=== PATIENT | female | born 1950 | race Caucasian/White ===

== ENCOUNTER 2018-12-22 18:50 | Inpatient (IN) | payer MEDICARE, OTHER ==
[~2018-12-22] VITALS: Ht 152.4 cm; Wt 57.2 kg
[~2018-12-22 18:50] MED LIST: ALENDRONATE SOD70 MG PO; ASPIRIN81 MG PO; ATORVASTATIN CA10 MG PO; CALCIUM600 MG PO; DIOVAN HCT 1601 EAC1 PO; IBUPROFEN200 MG PO; MULTIVITAMIN PO; TYLENOL PM PO; VITAMIN C1000 MG PO; VITAMIN D1000 UNIT PO
[2018-12-22] MEDS ORDERED: PANTOPRAZOLE 40 MG 10ML VIAL IV ONE (19:12)
[2018-12-22] MEDS ORDERED: ONDANSETRON HCL INJ 2MG/ML 2ML 2 MG/ML VIAL IV ONE (19:12)
[2018-12-22] MEDS ORDERED: KETOROLAC TROMETHAMINE 30 MG/ML VIAL IV ONE (19:12)
[2018-12-22] MEDS ORDERED: SODIUM CHLORIDE 0.9% 1000ML 1,000 ML IV ONE (19:15)
[2018-12-22] MEDS ORDERED: DIATRIZOATE MEGL/DIATRIZOA SOD 30 ML BTL PO ONE (19:19)
[2018-12-22 19:25] LABS: BASOPHILS % 0.2 % (0.0-1.0); EOSINOPHILS % 0.1 % (0.0-6.0); HEMOGLOBIN 15.4 g/dL (12.0-16.0); LYMPHOCYTES % 5.6 % (18.0-39.1); MEAN CORPUSCULAR HEMOGLOBIN 30.1 pg (28-32); MEAN CORPUSCULAR HGB CONC 34.2 g/dL (31-35); MEAN CORPUSCULAR VOLUME 88.1 fL (81-99); MONOCYTES # (AUTO) 0.9 (0.2-0.8); MONOCYTES % 4.9 % (4.4-11.3); NEUTROPHILS # (AUTO) 16.3 (2.1-6.9); NEUTROPHILS % 88.8 % (38.7-80.0); PLATELET COUNT 172 x10e3/uL (140-360); RED BLOOD COUNT 5.11 x10e6/uL (3.6-5.1); RED CELL DISTRIBUTION WIDTH 13.2 % (11.7-14.4)
[2018-12-22 19:27] LABS: BILIRUBIN,URINE NEGATIVE (NEGATIVE); CLARITY,URINE SL CLOUDY (CLEAR); COLOR,URINE YELLOW (YELLOW); LEUKOCYTE ESTERASE ,URINE TRACE (NEGATIVE); NITRITE,URINE NEGATIVE (NEGATIVE); PROTEIN,URINE DIPSTICK TRACE (NEGATIVE); URINE UROBILINOGEN 0.2 mg/dL (0.2 - 1)
[2018-12-22 19:28] LABS: KETONES,URINE 1+ (NEGATIVE)
[2018-12-22 19:41] LABS: AMORPHOUS SEDIMENT,URINE MODERATE (FEW); BACTERIA,URINE MODERATE /HPF; EPITHELIAL CELLS,URINE FEW /LPF; MUCUS,URINE MODERATE (RARE); RBC,URINE 0-5 /HPF (0-5)
[2018-12-22 19:44] LABS: ALANINE AMINOTRANSFERASE 21 IU/L (0-55); ALBUMIN 4.4 g/dL (3.5-5.0); ALBUMIN/GLOBULIN RATIO 1.3 (0.8-2.0); ALKALINE PHOSPHATASE 66 IU/L (40-150); AMYLASE 63 U/L (25-125); ANION GAP 17.3 mmol/L (8-16); BLOOD UREA NITROGEN 20 mg/dL (7-26); BUN/CREATININE RATIO 24 (6-25); CALCIUM 10.6 mg/dL (8.4-10.2); CARBON DIOXIDE 30 mmol/L (22-29); CHLORIDE 96 mmol/L (98-107); CREATINE KINASE 27 IU/L (29-168); CREATININE, SERUM 0.83 mg/dL (0.57-1.11); EST GLOMERULAR FILTRATION RATE > 60 ML/MIN (60-); GLUCOSE 116 mg/dL (74-118); LIPASE 26 U/L (8-78); POTASSIUM 3.3 mmol/L (3.5-5.1); SODIUM 140 mmol/L (136-145)
[2018-12-22] MEDS ORDERED: HYZAAR 100-12.1 EACH PO (19:49)
--- NOTE | 2018-12-22 20:52 | Diagnostic Imaging Report ---
EXAM: CT of the abdomen and pelvis WITH contrast HISTORY: abdominal pain, history of appendectomy COMPARISON: None. TECHNIQUE: The abdomen and pelvis were scanned utilizing a multidetector helical scanner. Coronal and sagittal reformats are provided. PROTOCOL: Routine IV CONTRAST: 100 cc of Isovue-370. ORAL CONTRAST: Dilute Gastrografin RADIATION DOSE: Total DLP: 165.01 mGy*cm Estimated effective dose: (DLP x 0.015 x size factor) Dose modulation, iterative reconstruction, and/or weight based adjustment of the mA/kV was utilized to reduce the radiation dose to as low as reasonably achievable. COMPLICATIONS: None FINDINGS: LOWER THORAX: Unremarkable. HEPATOBILIARY: A 0.9 mildly lobulated density near the dome of the right lobe (axial image 10), this may reflect a flash filling hemangioma. No biliary dilation. No calcified gallstone. SPLEEN: No splenomegaly. PANCREAS: No focal masses or ductal dilatation. ADRENALS: A heterogeneous right adrenal nodule measures up to 2.4 cm. KIDNEYS/URETERS: No hydronephrosis, stones, or definite solid mass lesions. PELVIC ORGANS/BLADDER: The visualized pelvic organs appear unremarkable. GI TRACT: * Radiopaque contrast within the stomach and proximal small bowel. * Multiple loops of fluid-filled distal small bowel measuring up to 3.3 cm in diameter. * Abrupt narrowing to decompress small bowel within the right hemipelvis (coronal image 34 and axial image 55) with small bowel feces sign proximal to the narrowing. * Moderate colonic fecal burden. * Peristalsis versus focal narrowing of the distal colon near the junction of the descending colon and sigmoid colon (coronal image 27). PERITONEUM / RETROPERITONEUM: Small volume low density ascites. No free air. LYMPH NODES: No pathologically enlarged lymph node. VESSELS: Diffuse scattered atherosclerotic vascular calcifications. BONES: Osseous remodeling about sacral Tarlov cysts. SOFT TISSUES: Are slightly visualized bilateral breast implants. IMPRESSION: 1. Findings compatible with a high-grade distal small bowel obstruction within the right hemipelvis. 2. Small volume ascites. 3. Peristalsis versus focal lesion of the distal colon, recommend follow-up gastrointestinal consultation to discuss colon cancer screening after resolution of the acute process. 4. Indeterminant 2.4 cm right adrenal nodule and possible flash filling hemangioma near the dome of the liver. Recommend a follow-up nonemergent MRI of the abdomen with and without contrast after resolution of acute process for further evaluation. Signed by: Dr. Forest Lim D.O., M.M.M. on 12/22/2018 8:48 PM
[2018-12-22] MEDS ORDERED: BENZOCAINE/TETRACAINE/BUTAMBEN AERO SPRAY 56 GM CAN TOP ONE (21:30)
[2018-12-22] MEDS ORDERED: KCL 20MEQ/.9 SOD CHL 1,000 ML IV ONE (21:45)
[2018-12-22] MEDS ORDERED: MORPHINE SULFATE 2 MG/ML SYR 1ML IV PRN (21:45)
--- OUTSIDE RECORDS SUMMARY | 2018-12-22 21:45 | XMS REPORT ---
Author [facility] Address Unknown Phone Unavailable Care Team Providers Care Emergency Room Registered Nurse Name Role Phone Michael GUZMÁN Unavailable Unavailable Problems This patient has no known problems. Allergies, Adverse Reactions, Alerts This patient has no known allergies or adverse reactions. Medications This patient has no known medications. Results Test Description Test Time Test Comments Text Results Atomic Results Result Comments CT ABDOMEN/PELVIS W 2018-12-22 20:34:00 [facility] [address] [address] Patient Name: MAYRA ROSALES MR #: [id number] : 1950 Age/Sex: 68/F Req #: [id number] Adm Physician: Ordered by: BOWEN LOYD MD Report #: [id number] Location: ER Room/Bed: Procedure: [id number] CT/CT ABDOMEN/PELVIS W Exam Date: Exam Time: REPORT STATUS: Signed EXAM: CT of the abdomen and pelvis WITH contrast HISTORY: abdominal pain, history of appendectomy COMPARISON: None. TECHNIQUE: The abdomen and pelvis were scanned utilizing a multidetector helical scanner. Coronal and sagittal reformats are provided. PROTOCOL: Routine IV CONTRAST: 100 cc of Isovue-370. ORAL CONTRAST: Dilute Gastrografin RADIATION DOSE: Total DLP: 165.01 mGy*cm Estimated effective dose: (DLP x 0.015 x size factor) Dose modulation, iterative reconstruction, and/or weight based adjustment of the mA/kV was utilized to reduce the radiation dose to as low as reasonably achievable. COMPLICATIONS: None FINDINGS: LOWER THORAX: Unremarkable. HEPATOBILIARY: A 0.9 mildly lobulated density near the dome of the right lobe (axial image 10), this may reflect a flash filling hemangioma. No biliary dilation. No calcified gallstone. SPLEEN: No splenomegaly. PANCREAS: No focal masses or ductal dilatation. ADRENALS: A heterogeneous right adrenal nodule measures up to 2.4 cm. KIDNEYS/URETERS: No hydronephrosis, stones, or definite solid mass lesions. PELVIC ORGANS/BLADDER: The visualized pelvic organs appear unremarkable. GI TRACT: * Radiopaque contrast within the stomach and proximal small bowel. * Multiple loops of fluid-filled distal small bowel measuring up to 3 .3 cm in diameter. * Abrupt narrowing to decompress small bowel within the right hemipelvis (coronal image 34 and axial image 55) with small bowel feces sign proximal to the narrowing. * Moderate colonic fecal burden. * Peristalsis versus focal narrowing of the distal colon near the junction of the descending colon and sigmoid colon (coronal image 27). PERITONEUM / RETROPERITONEUM: Small volume low density ascites. No free air. LYMPH NODES: No pathologically enlarged lymph node. VESSELS: Diffuse scattered atherosclerotic vascular calcifications. BONES: Osseous remodeling about sacral Tarlov cysts. SOFT TISSUES: Are slightly visualized bilateral breast implants. IMPRESSION: 1. Findings compatible with a high-grade distal small bowel obstruction within the right hemipelvis. 2. Small volume ascites. 3. Peristalsis versus focal lesion of the distal colon, recommend follow-up gastrointestinal consultation to discuss colon cancer screening after resolution of the acute process. 4. Indeterminant 2.4 cm right adrenal nodule and possible flash filling hemangioma near the dome of the liver. Recommend a follow-up nonemergent MRI of the abdomen with and without contrast after resolution of acute process for further evaluation. Signed by: Alo GroverO., M.M.M. on 12/22/2018 8:48 PM Dictated By: HILDA MERINO DO 47 Transcribed By: BLADE on 12/22/182047 COPY TO: BOWEN LOYD MD
[2018-12-22] MEDS ORDERED: OXYMETAZOLINE HCL 0.05% NAS 1 SPRAY BTL ONE ×2 (22:15→22:21)
[2018-12-22] MEDS ORDERED: SODIUM CHLORIDE 0.9% 50ML 50 ML ONE (22:21)
[2018-12-22] MEDS ORDERED: IOPAMIDOL 370 MG/ML 200 ML INFUS..BTL INJ ONE (22:21)
[2018-12-22] MEDS: PIPER-TAZ 3.375 GM 50 ML IV SCH (22:45)
--- NOTE | 2018-12-22 23:23 | NUR ---
Received report from ER nurse.
--- NOTE | 2018-12-22 23:39 | NUR ---
Patient arrived to floor via stretcher.
[2018-12-23] VITALS (8 sets, daily range): BP systolic 110–170; BP diastolic 56–72
[2018-12-23] MEDS: ONDANSETRON HCL INJ 2MG/ML 2ML 2 MG/ML VIAL IV PRN ×4 (01:29→23:05)
[2018-12-23] MEDS: MORPHINE SULFATE INJ 4 MG/ML INJ 1ML IV PRN ×4 (01:29→23:10)
[2018-12-23] MEDS: PIPER-TAZ 3.375 GM 50 ML IV SCH ×4 (02:30→21:27)
[2018-12-23 05:30] LABS: BASOPHILS % 0.4 % (0.0-1.0); EOSINOPHILS % 0.4 % (0.0-6.0); HEMATOCRIT 37.9 % (34.2-44.1); HEMOGLOBIN 12.5 g/dL (12.0-16.0); LYMPHOCYTES # (AUTO) 1.2 (1.0-3.2); LYMPHOCYTES % 11.3 % (18.0-39.1); MEAN CORPUSCULAR HEMOGLOBIN 29.8 pg (28-32); MEAN CORPUSCULAR VOLUME 90.2 fL (81-99); MONOCYTES # (AUTO) 0.8 (0.2-0.8); MONOCYTES % 7.9 % (4.4-11.3); NEUTROPHILS # (AUTO) 8.2 (2.1-6.9); NEUTROPHILS % 79.7 % (38.7-80.0); PLATELET COUNT 142 x10e3/uL (140-360); RED CELL DISTRIBUTION WIDTH 13.2 % (11.7-14.4)
[2018-12-23 05:53] LABS: ALANINE AMINOTRANSFERASE 14 IU/L (0-55); ALBUMIN/GLOBULIN RATIO 1.4 (0.8-2.0); ALKALINE PHOSPHATASE 50 IU/L (40-150); ANION GAP 12.5 mmol/L (8-16); BLOOD UREA NITROGEN 17 mg/dL (7-26); BUN/CREATININE RATIO 21 (6-25); CARBON DIOXIDE 30 mmol/L (22-29); CHLORIDE 103 mmol/L (98-107); CREATININE, SERUM 0.81 mg/dL (0.57-1.11); EST GLOMERULAR FILTRATION RATE > 60 ML/MIN (60-); GLUCOSE 97 mg/dL (74-118); POTASSIUM 3.5 mmol/L (3.5-5.1); SODIUM 142 mmol/L (136-145)
[2018-12-23 06:02] LABS: ALBUMIN 3.3 g/dL (3.5-5.0); CALCIUM 8.9 mg/dL (8.4-10.2)
--- NOTE | 2018-12-23 07:46 | NUR ---
S/W DR Lucas and informed him of abnormal lab values. Received order for KUB of abdomin.
--- NOTE | 2018-12-23 08:30 | NUR ---
NGT 14fr inserted to right Nare, secured in place and started on low intermittent wall suction per order.
[2018-12-23] MEDS: KCL 20MEQ/.9 SOD CHL 1,000 ML IV SCH ×2 (08:37→16:34)
--- NOTE | 2018-12-23 09:37 | NUR ---
per patient may have few ice chips to moisten mouth.
--- NOTE | 2018-12-23 09:55 | Diagnostic Imaging Report ---
Exam: Abdominal film Clinical History: Nasogastric tube placement, abdominal pain Comparison: CT abdomen and pelvis 12/22/2018 DISCUSSION: Interval placement of a nasogastric tube. The tip projects over the proximal gastric body. Side hole projects just distal to the gastroesophageal junction. Persistent dilatation of multiple loops of small bowel, slightly improved relative to CT from 12/22/2018, maximum caliber of 3.3 cm. No marce pneumoperitoneum. No mass effect or organomegaly. Regional skeletal structures are intact. IMPRESSION: Interval placement of nasogastric tube, with tip projecting over the proximal gastric body. Slight interval improvement in small bowel dilatation relative to CT abdomen and pelvis 12/22/2018. Signed by: Dr. Seth Jiang M.D. on 12/23/2018 9:51 AM
[2018-12-23] MEDS ORDERED: ENALAPRILAT DIHYDRATE 1.25 MG/ML 2ML VIAL IV PRN (10:15)
[2018-12-23] MEDS ORDERED: HYDRALAZINE HCL 20 MG/ML VIAL IV PRN (10:15)
--- NOTE | 2018-12-23 14:53 | Consultation ---
DATE OF CONSULTATION: 12/23/2018 CHIEF COMPLAINT: Abdominal pain and vomiting. HISTORY OF PRESENT ILLNESS: The patient is a 68-year-old female with 2-day history of pain in the periumbilical area and the right lower quadrant with repeated vomiting without hematemesis. The patient has had no previous episodes. She gave a history of surgery in the distant past. PAST MEDICAL HISTORY: Positive for hypertension, hyperlipidemia. PAST SURGICAL HISTORY: Positive for appendectomy and intussusception repair. ALLERGIES: SHE IS ALLERGIC TO IODINE. SOCIAL HABITS: No smoking or alcohol abuse. REVIEW OF SYSTEMS: No chest pain or shortness of breath. PHYSICAL EXAMINATION: VITAL SIGNS: Stable, afebrile. GENERAL: She is awake, alert, in [id number] discomfort. HEENT: Sclera are nonicteric. NECK: Supple. LUNGS: Clear. HEART: Regular rate and rhythm. ABDOMEN: Soft with some mild distention. No focal tenderness. EXTREMITIES: No cyanosis or edema. LABORATORY DATA: White cell count is 10, hemoglobin of 12. Creatinine of 0.8. Lipase is 26. CT scan show high-grade obstruction in the right lower quadrant. ASSESSMENT: Intestinal obstruction likely secondary to adhesions from prior surgery. PLAN: Nasogastric tube decompression. Serial abdominal exam. Seth Villar MD DNL/MODL /[id number]
--- NOTE | 2018-12-23 16:19 | History and Physical ---
TRUCK SERVICE MANAGER: Dr. Seth Villar. CHIEF COMPLAINT: Nausea and vomiting, small bowel obstruction with low potassium. HISTORY OF PRESENT ILLNESS: The patient is a 68-year-old female with childhood complicated surgery of intussusception with appendectomy. Since then, the patient did not have any significant problem until more so recently, she was having intermittent complaint of abdominal pain. The patient now came in with abdominal pain. She was having nausea and vomiting and CT scan in the emergency room has shown that the patient has high-grade distal small bowel obstruction within the right hemipelvis. There was a small volume ascites. There was also questionable focal lesion of the distal colon. The patient had history of ascending colon polyp that was removed back in 2016. There was internal hemorrhoids. The patient is otherwise stable, now NG tube in place. The patient's pain is under control. The patient is stable. PAST MEDICAL HISTORY: Including dyslipidemia and hypertension. PAST SURGICAL HISTORY: Tonsillectomy and appendectomy at childhood. SOCIAL HISTORY: The patient does not smoke or use alcohol. No recreational drugs. ALLERGIES: IODINE. HOME MEDICATIONS: The patient was on ascorbic acid, aspirin, Lipitor, calcium carbonate, vitamin D3, losartan HCTZ. PHYSICAL EXAMINATION: VITAL SIGNS: Temperature is 96.9, blood pressure 159/85, pulse rate is 88, respirations 18. GENERAL: The patient is not in acute distress. She is awake. HEENT: Normocephalic, atraumatic. Anicteric. The patient has NG tube in place. NECK: Grossly supple. PULMONARY: Diminished breath sounds without any wheezing or rales. CARDIOVASCULAR: S1, S2. Regular rate and rhythm. ABDOMEN: Diminished bowel sounds. Generalized discomfort. No rebound. Nondistention. EXTREMITIES: No cyanosis or edema. NEUROLOGIC: No gross focal deficit. LABORATORY DATA: WBC is 18.3, hemoglobin is 15.4, hematocrit 45, platelets are 172. Chemistry; sodium is 140, potassium 3.3, chloride 96, bicarb 30, BUN is 20, creatinine 0.8, glucose is 116. Urinalysis; trace leukocyte esterase, moderate bacteria, positive 1+ ketone, trace blood, trace protein. CT scan of abdomen and pelvis done, show findings compatible with a high-grade distal small bowel obstruction within the right hemipelvis. Small volume ascites. There is also questionable focal lesion of the distal colon, recommended GI consultation. There is indeterminate 2.4 cm right adrenal nodule and possible flash filling hemangioma near the dome of the liver. IMPRESSION: 1. High-grade small bowel obstruction, possible from effusion from previous remote surgery. 2. Electrolyte disorder. 3. Leukocytosis. PLAN: Continue with IV antibiotics. Pain medication. NG tube placement done. Consultation with Dr. Seth Villar done. Consultation with Dr. Marco Antonio Gonzalez is done. We will monitor the patient closely. Increase activity as tolerated. MD JARETT Argueta/MODL /[id number]
[2018-12-23] MEDS ORDERED: SODIUM CHLORIDE 0.9% 250ML 250 ML ONE (20:57)
--- NOTE | 2018-12-23 21:30 | NUR ---
PT NG TUBE IRRIGATED AT THIS TIME WITH 10ML NS WITHOUT COMPLICATION. PT BED IS IN LOW LOCKED POSITION WITH CALL LIGHT IN REACH.
[2018-12-24] VITALS (8 sets, daily range): BP systolic 108–138; BP diastolic 54–63
--- NOTE | 2018-12-24 01:30 | NUR ---
NG tube flushed with 10ml NS at this time without complication. NG tube is on low intermittent suction. pt resting in bed. bed in low locked position with call light in reach.
[2018-12-24] MEDS: PIPER-TAZ 3.375 GM 50 ML IV SCH ×4 (03:00→20:29)
[2018-12-24] MEDS: ONDANSETRON HCL INJ 2MG/ML 2ML 2 MG/ML VIAL IV PRN ×3 (03:12→22:35)
[2018-12-24] MEDS: MORPHINE SULFATE INJ 4 MG/ML INJ 1ML IV PRN ×3 (03:21→22:36)
[2018-12-24] MEDS: KCL 20MEQ/.9 SOD CHL 1,000 ML IV SCH ×4 (04:37→18:02)
[2018-12-24 05:40] LABS: BASOPHILS % 0.9 % (0.0-1.0); EOSINOPHILS % 0.6 % (0.0-6.0); HEMATOCRIT 35.1 % (34.2-44.1); HEMOGLOBIN 11.6 g/dL (12.0-16.0); LYMPHOCYTES # (AUTO) 0.6 (1.0-3.2); LYMPHOCYTES % 17.2 % (18.0-39.1); MEAN CORPUSCULAR HEMOGLOBIN 30.1 pg (28-32); MEAN CORPUSCULAR VOLUME 90.9 fL (81-99); MONOCYTES # (AUTO) 0.8 (0.2-0.8); NEUTROPHILS % 58.3 % (38.7-80.0); PLATELET COUNT 117 x10e3/uL (140-360); RED BLOOD COUNT 3.86 x10e6/uL (3.6-5.1); RED CELL DISTRIBUTION WIDTH 13.4 % (11.7-14.4)
[2018-12-24 05:50] LABS: ANION GAP 13.7 mmol/L (8-16); BLOOD UREA NITROGEN 20 mg/dL (7-26); BUN/CREATININE RATIO 27 (6-25); CALCIUM 8.3 mg/dL (8.4-10.2); CARBON DIOXIDE 24 mmol/L (22-29); CHLORIDE 111 mmol/L (98-107); CREATININE, SERUM 0.75 mg/dL (0.57-1.11); EST GLOMERULAR FILTRATION RATE > 60 ML/MIN (60-); GLUCOSE 77 mg/dL (74-118); POTASSIUM 3.7 mmol/L (3.5-5.1); SODIUM 145 mmol/L (136-145)
--- NOTE | 2018-12-24 06:40 | Diagnostic Imaging Report ---
Exam: Abdominal film Clinical History: Bowel obstruction Comparison: December 15, 2018 DISCUSSION: Enteric tube is in with tip overlying the left upper quadrant. Side port at the GE junction. Dilated loops of small bowel measuring up to 3.8 cm. IMPRESSION: Persistent small bowel dilation Signed by: Dr. Perfecto Stoddard M.D. on 12/24/2018 6:37 AM
--- NOTE | 2018-12-24 07:15 | NUR ---
REPORT GIVEN TO CROW TRAN. PT IN BED RESTING COMFORTABLY. CALL LIGHT IN REACH.
--- NOTE | 2018-12-24 13:55 | NUR ---
pt off unit for surgery, accompanied patient downstairs as well.
[2018-12-24] MEDS ORDERED: BUPIVACAINE 0.25%/EPI 30ML SDV INJ ONE (14:14)
[2018-12-24] MEDS ORDERED: BUPIVACAINE 0.25% 30ML SDV INJ ONE (14:14)
[2018-12-24] MEDS ORDERED: MIDAZOLAM HCL 2 MG/2 ML VIAL ONE (14:23)
[2018-12-24] MEDS ORDERED: FENTANYL CITRATE/PF 100MCG/2 ML INJ ONE (14:23)
[2018-12-24] MEDS ORDERED: HYDROMORPHONE 2MG/ML 2 MG/ML ML ONE (17:13)
[2018-12-24] MEDS ORDERED: ONDANSETRON HCL INJ 2MG/ML 2ML 2 MG/ML VIAL ONE ×2 (17:45→20:32)
--- NOTE | 2018-12-24 18:00 | NUR ---
received pt lying in bed with eyes open, Resp even and unlabored. on 2lpm O2 via NC. patient drowsy but arousable. AAOx3. transferred into bed and call light placed within reach.
--- NOTE | 2018-12-24 18:35 | Operative Report ---
DATE OF PROCEDURE: 12/24/2018 SURGEON: Seth Villar MD PREOPERATIVE DIAGNOSIS: Small-bowel obstruction. POSTOPERATIVE DIAGNOSIS: Small-bowel obstruction. PROCEDURE: Laparoscopy/open lysis of adhesions. ANESTHESIA: General, Dr. Cortes. INDICATION: The patient is a 68-year-old female with 5-day history of abdominal pain and vomiting, with CT scan showed a high-grade small bowel obstruction. The patient was treated with nasogastric tube decompression without improvement. She consented for laparoscopy, possible open bowel resection. PROCEDURE FINDINGS: Extensive adhesions with high-grade bowel obstruction in the ileum. DESCRIPTION OF PROCEDURE: The patient was brought to the OR, intubated. The abdomen was prepped and draped in sterile fashion. Left upper quadrant video-assisted port access was carried out. Insufflation then began under direct vision, all the port sites placed in the infraumbilical, right upper quadrant, and suprapubic area. Laparoscopic examination revealed dilated loops of small bowel extending into the right lower quadrant with significant adhesions involved several bowel loops. Lysis of adhesions was carried out with scissors and ligature. Due to extensive adhesions involving several loops of small bowel with several point of obstruction, we proceeded to convert to open approach with a lower midline incision from umbilicus down toward the suprapubic symphysis going through the midline fascia. The small bowel was then run from the ileocecal valve proximally, point of adhesions at several points were lysed with scissors. Bleeding from mesentery controlled with clips. There was a small enterotomy in the ileum, which was repaired in two layers with running 3-0 Vicryl and interrupted 3-0 silk. The small bowel was run to the ligament of Treitz with no further point of obstruction. We then irrigated the peritoneal cavity with copious saline solution. Hemostasis achieved. We then draped the omentum atop the bowel before closing the fascia with a running 0 PDS and reinforced with 0 Vicryl and skin with marni. The patient was then extubated and transported to recovery room in guarded condition. ESTIMATED BLOOD LOSS: 20 mL. Seth Villar MD DNL/MODL /[id number]
--- NOTE | 2018-12-24 19:23 | NUR ---
PT RESTING IN BED IN NO APPARENT DISTRESS. PT STATES "DULL ACHY" PAIN 4/10 IN ABDOMEN. DRESSINGS ON 2 LAP SITES AND INCISION AT UMBILICUS DRY AND INTACT WITH SCANT BLOODY DRAINAGE. PT PLACED ON BEDPAN AT THIS TIME. PT STATES SHE FEELS THE NEED TO VOID. CALL LIGHT IS IN REACH.
--- NOTE | 2018-12-24 19:30 | NUR ---
Pt was not successful with voiding. Will continue to monitor. Addendum: 12/24/18 at 2307 by Elissa Coon RN Pt DTV by 12/24/18 at 0000.
[2018-12-24] MEDS ORDERED: LIDOCAINE HCL 2% LOCAL INJ 5 ML SDV VIAL INJ ONE (20:32)
[2018-12-24] MEDS ORDERED: ACETAMINOPHEN 1000 MG/100 ML IV ONE (20:32)
[2018-12-24] MEDS ORDERED: SEVOFLURANE INHAL SOLN 250 ML PEN BTL ONE (20:32)
[2018-12-24] MEDS ORDERED: ROCURONIUM BROMIDE 10 MG/ML 5ML VIAL ONE (20:32)
[2018-12-24] MEDS ORDERED: CEFOXITIN SOD 1 GM VIAL ONE (20:32)
[2018-12-24] MEDS ORDERED: NEOSTIGMINE 5 MG/5ML SYR ONE (20:32)
[2018-12-24] MEDS ORDERED: DEXAMETHASONE SOD PHOS INJ 4 MG/ML VIAL ONE (20:32)
[2018-12-24] MEDS ORDERED: PROPOFOL IV EMULSION 10 MG/ML 20 ML VIAL ONE (20:32)
[2018-12-24] MEDS ORDERED: GLYCOPYRROLATE INJ 1MG/ 5 ML SYR ONE (20:32)
[2018-12-24] MEDS ORDERED: SUCCINYLCHOLINE 200 MG/10 ML SYR ONE (20:32)
--- NOTE | 2018-12-24 22:34 | NUR ---
Pt educated on the importance of ambulating after procedure. Pt not wanting to get out of bed. Pain 8/10 at this time. Pain and Nausea medicine given at this time as ordered. Will continue to monitor.
--- NOTE | 2018-12-24 23:20 | NUR ---
Pt up out of bed and ambulated to restroom at this time. Pt c/o generalized achiness and pain 8/10 to abdomen. Pt voided moderate amount of clear yellow urine at this time. Pt ambulated back to bed. bed lowered and in locked position with call light in reach. Pt refusing SCDs. Call light is in reach.
[2018-12-25] VITALS (8 sets, daily range): BP systolic 113–148; BP diastolic 57–66
--- NOTE | 2018-12-25 02:00 | NUR ---
Pt ambulated to restroom at this time. Pt voided moderate amount of clear yellow urine. Pt ambulated back to bed. Call light is in reach.
[2018-12-25] MEDS: ONDANSETRON HCL INJ 2MG/ML 2ML 2 MG/ML VIAL IV PRN ×3 (02:50→20:06)
[2018-12-25] MEDS: MORPHINE SULFATE INJ 4 MG/ML INJ 1ML IV PRN ×4 (02:53→20:12)
[2018-12-25] MEDS: PIPER-TAZ 3.375 GM 50 ML IV SCH ×4 (02:54→20:03)
[2018-12-25] MEDS: KCL 20MEQ/.9 SOD CHL 1,000 ML IV SCH ×3 (04:25→14:59)
--- NOTE | 2018-12-25 07:13 | NUR ---
Bedside report given to dayshift RN at this time. Pt resting in bed. Abdominal dressing dry and intact. Bed is in low locked position with side rails up and call light is in reach.
[2018-12-25] MEDS: LORAZEPAM INJ 2 MG/ML VIAL IV PRN ×2 (09:18→15:19)
[2018-12-25] MEDS: KETOROLAC TROMETHAMINE 30 MG/ML VIAL IV PRN (09:18)
[2018-12-25 09:45] LABS: ANION GAP 15.1 mmol/L (8-16); BLOOD UREA NITROGEN 13 mg/dL (7-26); BUN/CREATININE RATIO 16 (6-25); CALCIUM 8.1 mg/dL (8.4-10.2); CARBON DIOXIDE 21 mmol/L (22-29); CHLORIDE 115 mmol/L (98-107); CREATININE, SERUM 0.82 mg/dL (0.57-1.11); EST GLOMERULAR FILTRATION RATE > 60 ML/MIN (60-); GLUCOSE 103 mg/dL (74-118); POTASSIUM 4.1 mmol/L (3.5-5.1); SODIUM 147 mmol/L (136-145)
--- NOTE | 2018-12-25 18:50 | NUR ---
Pt resting comfortably in bed at this time. Pt c/o abdominal pain at a 4/10. Pt states her pain is improving. Pt bed is in low locked position and call light is in reach.
[2018-12-26] VITALS (8 sets, daily range): BP systolic 118–142; BP diastolic 56–65
[2018-12-26] MEDS: KCL 20MEQ/.9 SOD CHL 1,000 ML IV SCH ×2 (03:17→14:30)
[2018-12-26] MEDS: LORAZEPAM INJ 2 MG/ML VIAL IV PRN ×3 (04:13→22:15)
[2018-12-26] MEDS: KETOROLAC TROMETHAMINE 30 MG/ML VIAL IV PRN ×2 (04:29→21:00)
[2018-12-26] MEDS: PIPER-TAZ 3.375 GM 50 ML IV SCH ×4 (04:40→22:00)
[2018-12-26 05:35] LABS: BASOPHILS % 0.3 % (0.0-1.0); EOSINOPHILS % 0.1 % (0.0-6.0); HEMATOCRIT 32.1 % (34.2-44.1); HEMOGLOBIN 10.9 g/dL (12.0-16.0); LYMPHOCYTES # (AUTO) 0.4 (1.0-3.2); LYMPHOCYTES % 2.9 % (18.0-39.1); MEAN CORPUSCULAR HEMOGLOBIN 30.1 pg (28-32); MEAN CORPUSCULAR VOLUME 88.7 fL (81-99); MONOCYTES # (AUTO) 1.1 (0.2-0.8); MONOCYTES % 7.9 % (4.4-11.3); NEUTROPHILS # (AUTO) 12.4 (2.1-6.9); NEUTROPHILS % 85.4 % (38.7-80.0); PLATELET COUNT 137 x10e3/uL (140-360); RED BLOOD COUNT 3.62 x10e6/uL (3.6-5.1); RED CELL DISTRIBUTION WIDTH 13.8 % (11.7-14.4)
[2018-12-26 05:47] LABS: ANION GAP 12.4 mmol/L (8-16); BLOOD UREA NITROGEN 19 mg/dL (7-26); BUN/CREATININE RATIO 28 (6-25); CALCIUM 8.2 mg/dL (8.4-10.2); CARBON DIOXIDE 21 mmol/L (22-29); CHLORIDE 118 mmol/L (98-107); CREATININE, SERUM 0.69 mg/dL (0.57-1.11); EST GLOMERULAR FILTRATION RATE > 60 ML/MIN (60-); GLUCOSE 94 mg/dL (74-118); POTASSIUM 3.4 mmol/L (3.5-5.1); SODIUM 148 mmol/L (136-145)
--- NOTE | 2018-12-26 07:25 | NUR ---
Report given to CROW Truong. Pt resting in bed at this time. Bed is in low locked position and call light is in reach.
[2018-12-26 07:52] LABS: BAND NEUTROPHILS % (MANUAL) 2 %; LYMPHOCYTES % (MANUAL) 3 % (19-48); METAMYELOCYTES % (MANUAL) 2 % (0-0); MONOCYTES % (MANUAL) 10 % (3.4-9.0); MYELOCYTES % (MANUAL) 2 % (0-0); NEUTROPHILS % (MANUAL) 81 % (40-74); RBC MORPHOLOGY COMMENT NORMAL
[2018-12-26 07:53] LABS: PLATELET ESTIMATE SLIGHTLY INCREASED; PLATELET MORPHOLOGY COMMENT NORMAL
[2018-12-26] MEDS: POTASSIUM CHLORIDE 20MEQ/100ML 200 ML IV ONE ×2 (09:15→10:30)
--- NOTE | 2018-12-26 15:49 | NUR ---
Nutrition Screen Note RD Recommendation for Physician: -Advance diet as tolerated to GI soft Plan of Care: RD following, monitoring for tolerance and adequacy Nutrition reason for involvement: NPO/ clear liquid x 4 days Primary Diagnose(s): SBO PMH: dyslipidemia and hypertension Ht: 60in Wt: 128.19lb BMI: 25.0kg/m2 IBW: 100lb +/- 10% RD Assessment: (12/26) Chart reviewed. Labs and meds reviewed. 68yo F, who was admitted for abdominal pain (2 days). S/p bowel resection on 12/24. POD 2. Visited pt in the room. NGT still on suction with dark drainage. Apparently, pt is started on clear liquid while NGT in placed. Pt stated I begged the doctor for something to drink. Flatus absent. No BM yet. Pt complains of mild nausea and some abdominal pain. UBW ~111lbs. 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 Will continue to monitor and follow. Current Diet: Clear liquid Malnutrition Evaluation (12/26/2018) The patient does not meet criteria for a specified degree of malnutrition at this time. Will re-evaluate at follow-up as appropriate. Energy intake: <50% of estimated energy requirements for >5 days Weight loss: None Fat loss: None Muscle loss: None Diet Education Needs Assessment: Diet education not indicated. Nutrition Care Level: low Signed: Varsha Roche, MS, RD, LD
--- NOTE | 2018-12-26 19:26 | NUR ---
Patient sitting up in bed. AAO x 3. No complaints of pain. respirations even and non-labored. NG in right nares; IVF infusing at LIWS. Fall precautions implemented. Patient instructed to call for assistance when needed. Call light within reach.
[2018-12-26] MEDS: ONDANSETRON HCL INJ 2MG/ML 2ML 2 MG/ML VIAL IV PRN (21:00)
--- NOTE | 2018-12-26 23:10 | NUR ---
IV infiltrated in left arm. Old IV removed with tip intact. New IV inserted in right hand 20G. Patient tolerated well.
[2018-12-27 00:29] VITALS: BP 146/65
[2018-12-27] MEDS: KCL 20MEQ/.9 SOD CHL 1,000 ML IV SCH (02:00)
[2018-12-27] MEDS: PIPER-TAZ 3.375 GM 50 ML IV SCH ×4 (03:15→21:45)
[2018-12-27 04:50] VITALS: BP 148/67
--- NOTE | 2018-12-27 07:12 | NUR ---
Walking rounds done . Shift report given to oncoming nurse.
[2018-12-27 07:57] VITALS: BP 150/70
[2018-12-27] MEDS: LORAZEPAM INJ 2 MG/ML VIAL IV PRN ×2 (08:48→18:15)
[2018-12-27] MEDS: MORPHINE SULFATE INJ 4 MG/ML INJ 1ML IV PRN ×2 (08:48→22:33)
[2018-12-27] MEDS: ONDANSETRON HCL INJ 2MG/ML 2ML 2 MG/ML VIAL IV PRN ×2 (08:48→18:15)
[2018-12-27 09:32] LABS: ANION GAP 13.4 mmol/L (8-16); BLOOD UREA NITROGEN 20 mg/dL (7-26); BUN/CREATININE RATIO 31 (6-25); CALCIUM 8.5 mg/dL (8.4-10.2); CARBON DIOXIDE 24 mmol/L (22-29); CHLORIDE 116 mmol/L (98-107); CREATININE, SERUM 0.65 mg/dL (0.57-1.11); EST GLOMERULAR FILTRATION RATE > 60 ML/MIN (60-); GLUCOSE 89 mg/dL (74-118); PHOSPHORUS 1.4 MG/DL (2.3-4.7); POTASSIUM 3.4 mmol/L (3.5-5.1); SODIUM 150 mmol/L (136-145)
[2018-12-27 12:00] VITALS: BP 146/69
[2018-12-27] MEDS: D5.45%NS/KCL 20MEQ 1,000 ML IV SCH ×2 (14:29→21:45)
[2018-12-27] MEDS: BISACODYL 10 MG SUPP PR PRN (15:06)
[2018-12-27 16:00] VITALS: BP 148/69
--- NOTE | 2018-12-27 17:11 | Diagnostic Imaging Report ---
Exam: KUB - 1 views Clinical History: Small bowel obstruction Comparison: Multiple prior abdominal radiographs, most recently of 12/24/2018 Findings: NG tube is in place with tip and side-port in the stomach. Interval postoperative changes with surgical clips projecting over the lower abdomen. Compared to the prior radiograph of 12/24/2018, there has been interval improvement in appearance of dilated loops of small bowel. Some residual high density contrast material remains in the colon. Impression: Interval improvement in dilated loops of small bowel compared to 12/24/2018. Signed by: Michael Xavier MD on 12/27/2018 5:07 PM
[2018-12-27] MEDS: KETOROLAC TROMETHAMINE 30 MG/ML VIAL IV PRN (18:15)
--- NOTE | 2018-12-27 19:28 | NUR ---
Walking rounds completed with casino shift manager. Patient in no distress at this time.
--- NOTE | 2018-12-27 19:30 | NUR ---
Patient received in a semi-rios position in bed. AAO x 4. IVF infusing at 125 cc / hr. NG tube in right nares connected to LIWS. No acute distress noted . Call light within reach.
[2018-12-27 19:57] VITALS: BP 155/68
[2018-12-28] VITALS (9 sets, daily range): BP systolic 142–166; BP diastolic 65–86
[2018-12-28] MEDS: PIPER-TAZ 3.375 GM 50 ML IV SCH ×4 (02:47→21:00)
[2018-12-28] MEDS: LORAZEPAM INJ 2 MG/ML VIAL IV PRN (02:58)
--- NOTE | 2018-12-28 03:34 | NUR ---
NG tube to right nares flushed per MD's orders. Patient tolerated well.
[2018-12-28] MEDS: D5.45%NS/KCL 20MEQ 1,000 ML IV SCH ×3 (05:15→21:15)
--- NOTE | 2018-12-28 07:00 | NUR ---
BEDSIDE REPORT FROM NIGHT RN. PT DENIES NEEDS AT THIS TIME.
[2018-12-28] MEDS ORDERED: BISACODYL 10 MG SUPP PR PRN (09:15)
[2018-12-28 09:25] LABS: BASOPHILS # (AUTO) 0.1 (0.0-0.1); BASOPHILS % 0.5 % (0.0-1.0); EOSINOPHILS # (AUTO) 0.2 (0.0-0.4); EOSINOPHILS % 1.5 % (0.0-6.0); HEMATOCRIT 30.1 % (34.2-44.1); HEMOGLOBIN 10.2 g/dL (12.0-16.0); LYMPHOCYTES # (AUTO) 1.3 (1.0-3.2); LYMPHOCYTES % 10.2 % (18.0-39.1); MEAN CORPUSCULAR HEMOGLOBIN 29.8 pg (28-32); MEAN CORPUSCULAR HGB CONC 33.9 g/dL (31-35); MONOCYTES # (AUTO) 0.9 (0.2-0.8); NEUTROPHILS % 76.6 % (38.7-80.0); PLATELET COUNT 154 x10e3/uL (140-360); RED BLOOD COUNT 3.42 x10e6/uL (3.6-5.1)
[2018-12-28] MEDS ORDERED: BISACODYL 10 MG SUPP PR ONE (10:00)
[2018-12-28 10:02] LABS: ANION GAP 10.1 mmol/L (8-16); BLOOD UREA NITROGEN 14 mg/dL (7-26); BUN/CREATININE RATIO 24 (6-25); CALCIUM 8.1 mg/dL (8.4-10.2); CARBON DIOXIDE 26 mmol/L (22-29); CHLORIDE 111 mmol/L (98-107); CREATININE, SERUM 0.59 mg/dL (0.57-1.11); EST GLOMERULAR FILTRATION RATE > 60 ML/MIN (60-); GLUCOSE 122 mg/dL (74-118); POTASSIUM 3.1 mmol/L (3.5-5.1); SODIUM 144 mmol/L (136-145)
[2018-12-28 10:23] LABS: BAND NEUTROPHILS % (MANUAL) 3 %; EOSINOPHILS % (MANUAL) 3 % (0-7); LYMPHOCYTES % (MANUAL) 11 % (19-48); METAMYELOCYTES % (MANUAL) 1 % (0-0); MONOCYTES % (MANUAL) 9 % (3.4-9.0); NEUTROPHILS % (MANUAL) 73 % (40-74); PLATELET MORPHOLOGY COMMENT FEW LARGE; RBC MORPHOLOGY COMMENT NORMAL
[2018-12-28 10:24] LABS: PLATELET ESTIMATE ADEQUATE; SMUDGE CELLS FEW
[2018-12-28] MEDS: ONDANSETRON HCL INJ 2MG/ML 2ML 2 MG/ML VIAL IV PRN (14:23)
[2018-12-28] MEDS: KETOROLAC TROMETHAMINE 30 MG/ML VIAL IV PRN (14:23)
[2018-12-28] MEDS: MORPHINE SULFATE INJ 4 MG/ML INJ 1ML IV PRN (14:28)
[2018-12-29] VITALS (8 sets, daily range): BP systolic 132–149; BP diastolic 65–84
--- NOTE | 2018-12-29 00:05 | NUR ---
RECEIVED PATIENT FOR CONTINUING CARE
--- NOTE | 2018-12-29 00:25 | NUR ---
NOTIFIED DR LIZET HER K-3.1, NEW ORDER RECEIVED
[2018-12-29] MEDS ORDERED: POTASSIUM CHLORIDE 20 MEQ TAB CR PO STA (00:36)
[2018-12-29] MEDS: PIPER-TAZ 3.375 GM 50 ML IV SCH ×4 (02:34→21:19)
--- NOTE | 2018-12-29 04:50 | NUR ---
PATIENT HAD 1 SMALL BM
[2018-12-29 05:04] LABS: BASOPHILS % 0.2 % (0.0-1.0); EOSINOPHILS # (AUTO) 0.3 (0.0-0.4); EOSINOPHILS % 2.2 % (0.0-6.0); HEMATOCRIT 37.2 % (34.2-44.1); HEMOGLOBIN 12.4 g/dL (12.0-16.0); LYMPHOCYTES # (AUTO) 1.9 (1.0-3.2); MEAN CORPUSCULAR HEMOGLOBIN 29.2 pg (28-32); MEAN CORPUSCULAR HGB CONC 33.3 g/dL (31-35); MEAN CORPUSCULAR VOLUME 87.5 fL (81-99); MONOCYTES # (AUTO) 1.2 (0.2-0.8); MONOCYTES % 9.2 % (4.4-11.3); NEUTROPHILS # (AUTO) 8.7 (2.1-6.9); NEUTROPHILS % 67.2 % (38.7-80.0); PLATELET COUNT 190 x10e3/uL (140-360); RED BLOOD COUNT 4.25 x10e6/uL (3.6-5.1); RED CELL DISTRIBUTION WIDTH 13.7 % (11.7-14.4)
[2018-12-29] MEDS: D5.45%NS/KCL 20MEQ 1,000 ML IV SCH ×3 (05:26→21:06)
[2018-12-29 05:27] LABS: ANION GAP 11.1 mmol/L (8-16); BLOOD UREA NITROGEN 5 mg/dL (7-26); BUN/CREATININE RATIO 8 (6-25); CALCIUM 8.3 mg/dL (8.4-10.2); CARBON DIOXIDE 29 mmol/L (22-29); CHLORIDE 102 mmol/L (98-107); CREATININE, SERUM 0.62 mg/dL (0.57-1.11); EST GLOMERULAR FILTRATION RATE > 60 ML/MIN (60-); GLUCOSE 114 mg/dL (74-118); POTASSIUM 3.1 mmol/L (3.5-5.1); SODIUM 139 mmol/L (136-145)
[2018-12-29 05:40] LABS: MAGNESIUM 1.6 MG/DL (1.3-2.1); PHOSPHORUS 1.8 MG/DL (2.3-4.7)
[2018-12-29] MEDS: ONDANSETRON HCL INJ 2MG/ML 2ML 2 MG/ML VIAL IV PRN ×2 (05:41→17:26)
[2018-12-29] MEDS: MORPHINE SULFATE INJ 4 MG/ML INJ 1ML IV PRN ×2 (05:41→17:26)
--- NOTE | 2018-12-29 07:00 | NUR ---
BEDSIDE REPORT FROM NIGHT RN. PT DENIES NEEDS AT THIS TIME.
[2018-12-29] MEDS ORDERED: MAGNESIUM SULFATE 2GM/50ML IV ONE (10:00)
[2018-12-29 10:03] LABS: EOSINOPHILS % (MANUAL) 2 % (0-7); LYMPHOCYTES % (MANUAL) 19 % (19-48); MONOCYTES % (MANUAL) 10 % (3.4-9.0); NEUTROPHILS % (MANUAL) 66 % (40-74)
[2018-12-29 10:05] LABS: ANISOCYTOSIS SLIGHT; HYPOCHROMASIA SLIGHT; PLATELET ESTIMATE ADEQUATE; PLATELET MORPHOLOGY COMMENT NORMAL; RBC MORPHOLOGY COMMENT NORMAL
[2018-12-29] MEDS: KETOROLAC TROMETHAMINE 30 MG/ML VIAL IV PRN ×2 (10:22→21:10)
[2018-12-29] MEDS ORDERED: POTASSIUM CHLORIDE 20 MEQ TAB CR PO ONE (10:30)
[2018-12-29] MEDS ORDERED: MAGNESIUM SULFATE 2GM/50ML 50 ML IV ONE (10:30)
[2018-12-29] MEDS ORDERED: POTASSIUM PHOSPHATE 20 MM in SODIUM CHLORIDE 0.9% 250ML 250 ML IV ONE (11:30)
[2018-12-29] MEDS: BISACODYL 10 MG SUPP PR PRN (12:46)
--- NOTE | 2018-12-29 18:28 | NUR ---
PT HAS GOOD BOWEL SOUND IN ALL QUADRANTS AND PASSING GAS. TOLERATING FULL LIQUID DIET.
--- NOTE | 2018-12-29 19:20 | NUR ---
Received patient from day nurse, patient is alert and oriented, patient denies any pain at this time, patient is not in any form of distress, introduced self to patient, safety and fall precautions maintained as per hospital protocol: bed in lowest position and locked, needed items beside bed and call brewster placed close to patient, patient instructed to use it to call nurses for help, patient verbalized understanding. patient is currently stable will continue to monitor.
[2018-12-29] MEDS: LORAZEPAM INJ 2 MG/ML VIAL IV PRN (21:10)
[2018-12-30 00:35] VITALS: BP 115/58
[2018-12-30] MEDS: PIPER-TAZ 3.375 GM 50 ML IV SCH ×2 (03:22→08:55)
[2018-12-30 04:10] VITALS: BP 144/82
[2018-12-30] MEDS: D5.45%NS/KCL 20MEQ 1,000 ML IV SCH (05:15)
[2018-12-30 05:41] LABS: ANION GAP 11.3 mmol/L (8-16); BLOOD UREA NITROGEN 6 mg/dL (7-26); BUN/CREATININE RATIO 10 (6-25); CALCIUM 8.1 mg/dL (8.4-10.2); CARBON DIOXIDE 28 mmol/L (22-29); CHLORIDE 105 mmol/L (98-107); EST GLOMERULAR FILTRATION RATE > 60 ML/MIN (60-); GLUCOSE 89 mg/dL (74-118); POTASSIUM 3.3 mmol/L (3.5-5.1); SODIUM 141 mmol/L (136-145)
[2018-12-30 06:00] LABS: PHOSPHORUS 3.3 MG/DL (2.3-4.7)
--- NOTE | 2018-12-30 06:30 | NUR ---
Patient endorsed to next shift for continuity of care.
[2018-12-30 08:00] VITALS: BP 139/92
--- NOTE | 2018-12-30 08:00 | NUR ---
Pt in bed. Aox4 and able to verbalize needs. Continues on IV fluids at this time. Dressing to abdomen is dry and intact. Denies any pain at this time.
[2018-12-30] MEDS: MORPHINE SULFATE INJ 4 MG/ML INJ 1ML IV PRN (09:23)
[2018-12-30] MEDS ORDERED: POTASSIUM CHLORIDE 10MEQ EA PO ONE (09:30)
--- NOTE | 2018-12-30 10:01 | NUR ---
IMM letter delivered and explained to pt. She verbalized understanding. Signed copy placed in chart. Copy to pt.
[2018-12-30 12:00] VITALS: BP 152/76
--- NOTE | 2018-12-30 13:27 | NUR ---
Pt discharged home at this time. Pt verbalized understanding of all discharge instructions and follow up appt. Dressing to abdomen was changed, well approximated with marni in place with minimal drainage noted. Pt denies any pain at this time. Prescriptions given to pt at time f discharge.
--- NOTE | 2018-12-30 20:30 | Discharge Summary ---
PRIMARY CARE PHYSICIAN: Arlin Mueller MD CONSULTANTS: 1. Dr. Marco Antonio Gonzalez. 2. Dr. Seth Villar. FINAL DIAGNOSES: 1. Persistent small bowel obstruction, failed conservative measures with NG tube and bowel rest, now status post small-bowel lysis of adhesion, exploratory laparotomy on December 24, 2018. 2. Persistent hyponatremia, much improved. 3. Electrolyte disorder including low potassium, magnesium and phosphorus replacing. SUMMARY: A 68-year-old female, came into the hospital with intractable nausea and vomiting. She also had very low potassium level. The patient was on lisinopril/HCTZ as an outpatient for blood pressure. The patient was treated conservatively with NG tube and bowel rest, IV fluid rehydration, potassium, and the patient persistently with small-bowel obstruction. Repeat KUB showed no improvement. Subsequently, the patient underwent exploratory laparotomy with lysis of adhesions done by Dr. Seth Villar. The patient did well, stable, had a slow progress improvement, but now she is able to eat and drink, and has a lot of bowel gas and flatus. The patient is stable discharged home with Zofran ODT p.r.n., lisinopril 5 mg twice a day for blood pressure and Tylenol No. 3 p.r.n. for pain. The patient will stop lisinopril/HCTZ for now. The patient is stable, discharged home. Follow up with Dr. Villar next week for staple removal. MD JARETT Argueta/CHAROL /[id number]
== END 2018-12-30 13:27 | disposition home or self-care (01) | DRG 336 ==
LOC: ER 18:50 → ERHOLD 21:42 → MED/SURG2 23:42
PROVIDERS: ADMIT Internal Medicine; ATTEND Internal Medicine
PROC: 0DJD4ZZ Inspection of Lower Intestinal Tract, Percutaneous Endoscopic Approach (ICD-10-PCS; 2018-12-24)
PROC: 0DNB0ZZ Release Ileum, Open Approach (ICD-10-PCS; principal; 2018-12-24 14:15)
DX: K56.50 Intestinal adhesions [bands], unspecified as to partial versus complete obstruction (principal); E87.1 Hypo-osmolality and hyponatremia; E87.6 Hypokalemia; E83.42 Hypomagnesemia; E83.39 Other disorders of phosphorus metabolism; I10 Essential (primary) hypertension; F41.9 Anxiety disorder, unspecified
CPT/HCPCS: 36415; 74018; 74177; 80048; 80053; 81001; 82150; 82550; 82553; 83690; 83735; 84100; 84484; 85025; 93005; 96361; 96374; 96375; 99284; J0694; J1100; J1885; J2001; J2060; J2250; J2270; J2405; J2543; J3010; J3475; J3480; J7030; J7050; Q9967

== ENCOUNTER → 2019-04-20 | Day surgery (SDC) | payer MEDICARE ==
[2019-04-12 12:44] LABS: BASOPHILS % 0.6 % (0.0-1.0); EOSINOPHILS % 0.3 % (0.0-6.0); HEMATOCRIT 39.7 % (34.2-44.1); HEMOGLOBIN 13.1 g/dL (12.0-16.0); LYMPHOCYTES # (AUTO) 1.6 (1.0-3.2); MEAN CORPUSCULAR HEMOGLOBIN 29.5 pg (28-32); MEAN CORPUSCULAR VOLUME 89.4 fL (81-99); MONOCYTES # (AUTO) 0.7 (0.2-0.8); MONOCYTES % 10.6 % (4.4-11.3); NEUTROPHILS # (AUTO) 4.3 (2.1-6.9); NEUTROPHILS % 64.2 % (38.7-80.0); PLATELET COUNT 91 x10e3/uL (140-360); RED BLOOD COUNT 4.44 x10e6/uL (3.6-5.1); RED CELL DISTRIBUTION WIDTH 13.5 % (11.7-14.4)
[~2019-04-20] MED LIST changes: +BENEFIBER1 EAC1 PO; +EVISTA60 MG PO; +FENTANYL CITRATE/PF 100MCG/2 ML INJ ONE; +HYOSCYAMINE 0.125 MG TAB ONE; +HYZAAR 100-12.1 EACH PO; +LOSARTAN-HCTZ1 EAC2 PO; +MIDAZOLAM HCL 2 MG/2 ML VIAL ONE; +PROPOFOL IV EMULSION 10 MG/ML 50 ML VIAL ONE
[2019-04-20 10:43] VITALS: BP 116/64
--- NOTE | 2019-04-20 13:02 | Operative Report ---
DATE OF PROCEDURE: 04/20/2019 SURGEON: Marco Antonio Gonzalez MD PROCEDURE: Colonoscopy with polypectomy. INDICATIONS FOR COLONOSCOPY: Surveillance colonoscopy, personal history of colon polyps. MEDICATIONS: The patient was done under MAC, please see anesthesiologist's note. PROCEDURE IN DETAIL: With the patient in left lateral decubitus position, a flexible fiberoptic Olympus colonoscope was inserted into the rectum with ease and advanced with some difficulty all the way to the cecum. The colon was excessively tortuous and spastic. The scope was then withdrawn slowly whatever was visualized of the mucosa overlying the cecum, ascending, and transverse appeared to be within normal limits. Two polyps were hot biopsied from the descending colon. One polyp was hot biopsied from the sigmoid. One polyp was hot biopsied from the rectum. The scope was then retroflexed into the distal rectum and small internal hemorrhoids were noted, none of which was actively bleeding. The scope was then straightened out, it was subsequently withdrawn, and the patient tolerated the procedure well. IMPRESSION: 1. Colon excessively tortuous and spastic, suboptimally visualized. 2. Descending colon polyp x2, hot biopsied. 3. Sigmoid colon polyp x1, hot biopsied. 4. Rectal polyp x1, hot biopsied. 5. Internal hemorrhoids, none actively bleeding. PLAN: Follow up histology. Initiate high-fiber, low-fat diet. Initiate high-fiber supplement. The patient might benefit from a followup colonoscopy in 3 years. Marco Antonio Gonzalez MD [facility] [place] /[id number] cc: Arlin Mueller MD
== END | disposition home or self-care (01) ==
LOC: OR 07:06
PROVIDERS: ATTEND Internal Medicine Gastroenterology
DX: R14.0 Abdominal distension (gaseous) (principal); K62.1 Rectal polyp; K59.00 Constipation, unspecified; R10.9 Unspecified abdominal pain; I10 Essential (primary) hypertension; E78.5 Hyperlipidemia, unspecified; K63.5 Polyp of colon; K64.8 Other hemorrhoids; E78.00 Pure hypercholesterolemia, unspecified; Z86.010 Personal history of colon polyps; Z01.810 Encounter for preprocedural cardiovascular examination; Z01.812 Encounter for preprocedural laboratory examination
CPT/HCPCS: 36415; 45384; 85025; 88305; 93005; J2250; J2704; J3010; 45378; 45385

== ENCOUNTER → 2019-05-23 | Outpatient (CLI) | payer MEDICARE ==
[~2019-05-23] MED LIST changes: +DIATRIZOATE MEGL/DIATRIZOA SOD 30 ML BTL PO ONE; -FENTANYL CITRATE/PF 100MCG/2 ML INJ ONE; -HYOSCYAMINE 0.125 MG TAB ONE; +IOPAMIDOL 370 MG/ML 200 ML INFUS..BTL INJ ONE; -MIDAZOLAM HCL 2 MG/2 ML VIAL ONE; -PROPOFOL IV EMULSION 10 MG/ML 50 ML VIAL ONE; +SODIUM CHLORIDE 0.9% 50ML 50 ML ONE
[2019-05-23 09:24] LABS: BLOOD UREA NITROGEN 16 mg/dL (7-26); BUN/CREATININE RATIO 22 (6-25); CREATININE, SERUM 0.72 mg/dL (0.57-1.11); EST GLOMERULAR FILTRATION RATE > 60 ML/MIN (60-)
--- NOTE | 2019-05-23 11:19 | Diagnostic Imaging Report ---
EXAMINATION: CT of the abdomen and pelvis with contrast. TECHNIQUE: Spiral CT images of the abdomen and pelvis were performed from the lung bases to the lesser trochanters after the intravenous administration of 100 cc Isovue-370. Oral Gastrografin was also administered. Coronal and sagittal reformatted images were obtained. COMPARISON: CT abdomen and pelvis with contrast 12/22/2018 CLINICAL HISTORY:Previous bowel obstruction, surgery late December 15, 2018, persistent stomach bulge DISCUSSION: ABDOMEN/PELVIS: LOWER THORAX:Bilateral breast implants with dystrophic calcifications. Lung bases are otherwise unremarkable. No pleural or pericardial effusion. HEPATOBILIARY: Unchanged subcentimeter hyperattenuating lesion in segment 7 at the dome, too small to further characterize though likely to represent a vascular shunt or flash filling hemangioma. No additional focal hepatic lesion or intrahepatic biliary ductal dilatation. The gallbladder is normal. SPLEEN: No splenomegaly. PANCREAS: No focal masses or ductal dilatation. 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 No left adrenal nodule. KIDNEYS/URETERS: No hydronephrosis, stones, or solid mass lesions. PELVIC ORGANS/BLADDER: Urinary bladder is unremarkable. Uterus is not identified and has presumably been resected. No adnexal mass. PERITONEUM/RETROPERITONEUM: No ascites. No pneumoperitoneum. LYMPH NODES: No pelvic sidewall, retroperitoneal, or mesenteric lymphadenopathy. VESSELS: Diffuse calcified atherosclerotic plaque of the abdominal aorta and major branch vessels, without aneurysmal dilatation. Iliac arterial systems are patent. GI TRACT: The large bowel shows no evidence of distention or wall thickening. Gas and fecal material are noted throughout. The appendix is not definitively identified. No right lower quadrant inflammation. No small bowel dilatation. BONES AND SOFT TISSUE: No osseous destructive lesions. 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 Broad-based ventral abdominal wall hernia at midline, with a neck measuring approximate 5 cm transversely. A segment of transverse colon is noted within the hernia, without evidence of wall thickening or inflammation. Soft tissues are unremarkable. IMPRESSION: Postsurgical broad-based midline ventral abdominal wall hernia contains a segment of transverse colon, without evidence of obstruction or inflammation and may account for the reported clinical history of "abdominal bulge". No acute intra-abdominal or pelvic CT abnormalities. Stable 2.5 cm right adrenal nodule, previously characterized as a benign lipid rich adenoma versus myelolipoma. Stable subcentimeter hyperattenuating lesion at the hepatic dome, likely a vascular shunt or flash filling hemangioma. Atherosclerotic vascular disease. Signed by: Dr. Steh Jiang M.D. on 05/23/2019 11:15 AM
== END ==
LOC: CT 08:38
PROVIDERS: ATTEND Surgery
DX: R19.07 Generalized intra-abdominal and pelvic swelling, mass and lump (principal)
CPT/HCPCS: 36415; 74177; 82565; 84520; Q9967

== ENCOUNTER → 2021-07-18 | Outpatient (CLI) | payer MEDICARE ==
[~2021-07-18] MED LIST changes: -DIATRIZOATE MEGL/DIATRIZOA SOD 30 ML BTL PO ONE; -IOPAMIDOL 370 MG/ML 200 ML INFUS..BTL INJ ONE; -SODIUM CHLORIDE 0.9% 50ML 50 ML ONE
== END ==
LOC: CT 13:29
PROVIDERS: ATTEND Family Medicine
DX: E27.8 Other specified disorders of adrenal gland (principal); F17.210 Nicotine dependence, cigarettes, uncomplicated
CPT/HCPCS: 71250

== ENCOUNTER → 2021-12-17 | Day surgery (SDC) | payer MEDICARE ==
[2021-12-15 13:17] LABS: BASOPHILS % 0.5 % (0.0-1.0); EOSINOPHILS # (AUTO) 0.1 (0.0-0.4); EOSINOPHILS % 0.7 % (0.0-6.0); HEMATOCRIT 43.2 % (34.2-44.1); HEMOGLOBIN 14.1 g/dL (12.0-16.0); LYMPHOCYTES # (AUTO) 2.1 (1.0-3.2); LYMPHOCYTES % 24.7 % (18.0-39.1); MEAN CORPUSCULAR HEMOGLOBIN 30.7 pg (28-32); MEAN CORPUSCULAR HGB CONC 32.6 g/dL (31-35); MEAN CORPUSCULAR VOLUME 93.9 fL (81-99); MONOCYTES # (AUTO) 0.8 (0.2-0.8); MONOCYTES % 9.1 % (4.4-11.3); NEUTROPHILS # (AUTO) 5.5 (2.1-6.9); NEUTROPHILS % 64.6 % (38.7-80.0); PLATELET COUNT 159 x10e3/uL (140-360); RED CELL DISTRIBUTION WIDTH 12.9 % (11.7-14.4)
[~2021-12-17] MED LIST changes: +BREZTRI AEROS10.7 GM INH; +GLUCAGON FOR INJ 1 MG VIAL ONE; +HYOSCYAMINE SULFATE 0.5 MG/ML INJ ONE; +LIDOCAINE HCL 2% LOCAL INJ 5 ML SDV VIAL INJ ONE; +LOSARTAN-HCTZ1 EAC1 PO; +METOPROLOL SUCC50 MG PO; +MIDAZOLAM HCL 2 MG/2 ML VIAL ONE; +PROPOFOL IV EMULSION 10 MG/ML 20 ML VIAL ONE; +[UNRECOGNIZED DRUG - OTHER] PO
[2021-12-17 09:25] VITALS: BP 109/52
== END | disposition home or self-care (01) ==
LOC: OR 07:39
PROVIDERS: ATTEND Internal Medicine Gastroenterology
DX: K59.09 Other constipation (principal); K63.5 Polyp of colon; K64.8 Other hemorrhoids; I10 Essential (primary) hypertension; E78.00 Pure hypercholesterolemia, unspecified; F41.9 Anxiety disorder, unspecified; Z01.810 Encounter for preprocedural cardiovascular examination; Z01.812 Encounter for preprocedural laboratory examination; Z20.822 Contact with and (suspected) exposure to COVID-19; Z79.82 Long term (current) use of aspirin; Z79.899 Other long term (current) drug therapy; Z87.891 Personal history of nicotine dependence; Z80.0 Family history of malignant neoplasm of digestive organs
CPT/HCPCS: 36415; 45380; 45385; 85025; 93005; J1610; J1980; J2001; J2250; J2704; U0002; 45378